=== PATIENT | male | born 1980 | race Caucasian/White ===

== ENCOUNTER 2024-07-24 05:27 | Day surgery (SDC) | payer OTHER ==
[2024-07-24] MEDS: Dextrose 5%-0.45% NaCl 1,000 ML IV SCH (05:52)
[2024-07-24] MEDS ORDERED: Midazolam 1 MG/ML 2 ML SDV ONE ×2 (06:07→06:08)
[2024-07-24] MEDS ORDERED: fentaNYL 100 MCG/2 ML SDV IV ONE (06:08)
[2024-07-24] MEDS ORDERED: Midazolam 1 MG/ML 2 ML SDV IV ONE (06:08)
[2024-07-24] MEDS ORDERED: fentaNYL 100 MCG/2 ML SDV ONE (06:08)
[2024-07-24] MEDS: fentaNYL 100 MCG/2 ML SDV IV ONE ×2 (06:24)
[2024-07-24] MEDS: Midazolam 1 MG/ML 2 ML SDV IV ONE ×2 (06:25)
== END 2024-07-24 08:26 | disposition home or self-care (01) ==
LOC: DL.ENDO 05:27
PROVIDERS: ATTEND Internal Medicine Gastroenterology
DX: K31.89 Other diseases of stomach and duodenum (principal); K21.9 Gastro-esophageal reflux disease without esophagitis; F41.9 Anxiety disorder, unspecified; E66.09 Other obesity due to excess calories; Z68.38 Body mass index [BMI] 38.0-38.9, adult
CPT/HCPCS: 43239; 88305; J2250; J3010; J7799

== ENCOUNTER 2024-07-27 06:54 | Day surgery (SDC) | payer OTHER ==
[2024-07-27] MEDS ORDERED: fentaNYL 100 MCG/2 ML SDV EPIDUR ONE (06:55)
[2024-07-27] MEDS ORDERED: Midazolam 1 MG/ML 2 ML SDV IV ONE (06:55)
[2024-07-27] MEDS ORDERED: Ketorolac 30 MG/ML SDV IVPUSH ONE (06:55)
[2024-07-27] MEDS ORDERED: Propofol 200 MG/20 ML SDV IV ONE (06:55)
[2024-07-27] MEDS ORDERED: Ondansetron 4 MG/2 ML SDV IV ONE (06:55)
[2024-07-27] MEDS ORDERED: Ropivacaine 100 ML EPIDUR ONE (06:55)
[2024-07-27] MEDS: Lactated Ringers 1,000 ML IV SCH (07:17)
== END 2024-07-27 09:59 | disposition home or self-care (01) ==
LOC: DL.ENDO 06:54
PROVIDERS: ATTEND Internal Medicine Gastroenterology
DX: K62.5 Hemorrhage of anus and rectum (principal); K21.9 Gastro-esophageal reflux disease without esophagitis; F41.9 Anxiety disorder, unspecified; F32.9 Major depressive disorder, single episode, unspecified; E66.09 Other obesity due to excess calories; Z68.38 Body mass index [BMI] 38.0-38.9, adult
CPT/HCPCS: J1885; J2250; J2405; J2704; J2795; J3010; J7120

== ENCOUNTER 2025-06-03 12:39 | Emergency (ER) | payer OTHER ==
[2025-06-03 12:58] LABS: APPEARANCE,URINE SLIGHTLY CLOUDY (CLEAR); GLUCOSE,URINE NEGATIVE (NEGATIVE); OCCULT BLOOD,URINE NEGATIVE (NEGATIVE)
[2025-06-03 13:33] LABS: BASOPHILS PERCENT AUTO 1.2 % (0.0-1.0); EOSINOPHILS PERCENT AUTO 3.7 % (1.0-3.0); LYMPHOCYTES PERCENT AUTO 26.3 % (20.5-50.1); MONOCYTES PERCENT AUTO 9.8 % (2-8); NEUTROPHILS PERCENT AUTO 59.0 % (42.2-75.2); PLATELET COUNT,PLT 233 10^3/uL (150-450); RED BLOOD CELL COUNT 5.08 10^6/uL (4.6-6.2); WHITE BLOOD CELL COUNT,WBC 8.3 10^3/uL (5.0-10.0)
[2025-06-03 13:50] LABS: A/G RATIO 1.1; ALANINE AMINOTRANSFERASE,ALT 29.0 U/L (16-63); ASPARTATE AMNIOTRANSFERASE,AST 20.0 U/L (15-37); BILIRUBIN TOTAL 0.4 mg/dL (0.2-1.0); BLOOD UREA NITROGEN,BUN 13.0 mg/dL (7-18); CARBON DIOXIDE,CO2 28.0 mmol/L (21-32); CHLORIDE,CL 108.0 mmol/L (98-107); CREATININE 1.06 mg/dL (0.70-1.30); EST CRCL DRUG DOSING (CG) 108.5 mL/min; GLUCOSE RANDOM 100.0 mg/dL (70-99); POTASSIUM,K 4.4 mmol/L (3.5-5.1); PROTEIN TOTAL,TP 7.7 g/dL (6.4-8.2); SODIUM,NA 146.0 mmol/L (136-145)
[2025-06-03 13:52] LABS: ESTIMATED GFR 90.0 mL/min (>=60)
[2025-06-03] MEDS: Phenazopyridine 95 MG Tab PO ONE (14:03)
[2025-06-09 12:48] LABS: C.TRACHOMATIS BY TMA Negative (Negative); M GENITALIUM Negative (Negative); M GENITALIUM SOURCE Urine; N.GONORRHOEAE BY TMA Negative (Negative)
== END 2025-06-03 14:47 | disposition home or self-care (01) ==
LOC: DL.ED 12:39
DX: R30.0 Dysuria (principal); R35.0 Frequency of micturition; E66.9 Obesity, unspecified; Z79.899 Other long term (current) drug therapy; Z68.37 Body mass index [BMI] 37.0-37.9, adult
CPT/HCPCS: 36415; 51798; 80053; 81003; 85025; 87491; 87563; 87591; 99283; A9270; G0103